=== PATIENT | male | born 1990 | race Caucasian/White ===

== ENCOUNTER 2021-02-06 22:43 | Emergency (ER) | payer OTHER ==
[~2021-02-06] VITALS: Ht 185.4 cm; Wt 88.0 kg
[2021-02-07] MEDS ORDERED: ERYT1OIN RIGHTEYE (01:21)
== END 2021-02-07 01:34 | disposition home or self-care (01) ==
LOC: ER 22:43
DX: T15.81XA Foreign body in other and multiple parts of external eye, right eye, initial encounter (principal); Z23 Encounter for immunization
CPT/HCPCS: 65220; 90714; 99282; A9270